=== PATIENT | female | born 1990 | race American Indian/Alaskan Native ===

== ENCOUNTER 2018-01-20 06:30 | Day surgery (SDC) | payer MEDICAID ==
[2018-01-20] MEDS ORDERED: WATER FOR IRRIG STERILE IR ONE (07:20)
[2018-01-20] MEDS ORDERED: HURRICAINE ONE 20% TOPICAL SPRAY MM (07:21)
[2018-01-20 08:53] VITALS: BP 102/52
[2018-01-20] MEDS ORDERED: NACL 0.9% 1000 ML 1,000 ML IV SCH (09:00)
[2018-01-20] MEDS ORDERED: DIPRIVAN 10 MG/ML IV ONE (10:53)
--- NOTE | 2018-01-20 11:17 | Anesthesia Consultation ---
Anesthesia Consult and Med Hx Date of service: 01/20/18 - Airway Anesthetic Teeth Evaluation: Good ROM Head & Neck: Adequate Mental/Hyoid Distance: Adequate Mallampati Class: Class II Intubation Access Assessment: Probably Good - Pulmonary Exam CTA: Yes - Cardiac Exam Cardiac Exam: RRR - Pre-Operative Health Status ASA Pre-Surgery Classification: ASA2 Proposed Anesthetic Plan: MAC - Other Systems Hx Obesity: Yes
--- NOTE | 2018-01-20 11:17 | Anesthesia Day of Surgery ---
Anesthesia Day of Surgery - Day of Surgery Patient Examined: Yes Patient H&P Reviewed: Yes Patient is NPO: Yes
== END 2018-01-20 06:31 | disposition home or self-care (01) ==
LOC: GIO 06:30
PROVIDERS: ATTEND Specialist
DX: K28.9 Gastrojejunal ulcer, unspecified as acute or chronic, without hemorrhage or perforation (principal); K21.0 Gastro-esophageal reflux disease with esophagitis; K44.9 Diaphragmatic hernia without obstruction or gangrene; K31.89 Other diseases of stomach and duodenum; E66.01 Morbid (severe) obesity due to excess calories; Z68.41 Body mass index [BMI] 40.0-44.9, adult; Z87.891 Personal history of nicotine dependence; Z98.890 Other specified postprocedural states
CPT/HCPCS: 43235; 81025; J2704; J7030